=== PATIENT | male | born 1995 | race Caucasian/White ===

== ENCOUNTER 2020-07-21 14:38 | Emergency (ER) | payer SELFPAY ==
--- NOTE | 2020-07-21 16:57 | ER ---
Nurse's Notes [facility] Name: Johnnie Pendleton Age: 24 yrs Sex: Male : 1995 Arrival Date: 07/21/2020 Time: 14:40 Bed 30 Private MD: Diagnosis: Presentation: 07/21 15:08 Chief complaint: Patient states: was working out and was using dumbbells, and something em snapped on the left shoulder, had tingling and pain radiating into left hand. Coronavirus screen: Client denies travel out of the [place] in the last 14 days. Ebola Screen: Patient negative for fever greater than or equal to 101.5 degrees Fahrenheit, and additional compatible Ebola Virus Disease symptoms Patient denies exposure to infectious person. Patient denies travel to an Ebola-affected area in the 21 days before illness onset. No symptoms or risks identified at this time. Initial Sepsis Screen: Does the patient meet any 2 criteria? No. Patient's initial sepsis screen is negative. Does the patient have a suspected source of infection? No. Patient's initial sepsis screen is negative. Risk Assessment: Do you want to hurt yourself or someone else? Patient reports no desire to harm self or others. Onset of symptoms was July 21, 2020. 15:08 Method Of Arrival: Wheelchair em 15:08 Acuity: MILA 4 em Historical: - Allergies: 15:11 No Known Allergies; em - Home Meds: 15:11 None [Active]; em - PMHx: 15:11 None; em - PSHx: 15:11 Cholecystectomy; em - Immunization history:: Adult Immunizations up to date. - Social history:: Smoking status: Patient reports the use of cigarette tobacco products, smokes one-half pack cigarettes per day. Screenin:03 Abuse screen: Denies threats or abuse. Denies injuries from another. Nutritional iw screening: No deficits noted. Tuberculosis screening: No symptoms or risk factors identified. Fall Risk None identified. Assessment: 16:02 General: Appears in no apparent distress. Behavior is calm, cooperative. Pain: iw Complains of pain in anterior aspect of left shoulder and posterior aspect of left shoulder. Neuro: Level of Consciousness is awake, alert, obeys commands, Oriented to person, place, time, situation, Moves all extremities. Cardiovascular: Patient's skin is warm and dry. Respiratory: Respiratory effort is even, unlabored, Respiratory pattern is regular. GI: No signs and/or symptoms were reported involving the gastrointestinal system. Derm: Skin is intact, is healthy with good turgor. Musculoskeletal: Range of motion: intact in all extremities. Vital Signs: 15:08 BP 116 / 71; Pulse 59; Resp 18; Temp 98.1(O); Pulse Ox 100% on R/A; Weight 65.77 kg; em Height 5 ft. 10 in. (177.80 cm); Pain 7/10; 15:08 Body Mass Index 20.81 (65.77 kg, 177.80 cm) em ED Course: 14:40 Patient arrived in ED. mr 15:10 Triage completed. em 15:11 Arm band placed on. em 15:54 Lucie Baxter, RN is Primary Nurse. iw 16:19 Arnol Segura MD is Attending Physician. snw 16:19 [facility] snw 16:58 No provider procedures requiring assistance completed. Patient did not have IV access iw during this emergency room visit. Administered Medications: No medications were administered Outcome: 16:58 Eloped from patient exam room, before seeing physician iw 16:58 Condition: good 16:59 Patient left the ED. iw Signatures: Cassandra Anna FNP-C FNP-Jez NickSintia mr BlockАлександр, RN RN em Lucie Baxter RN RN iw
[2020-07-21 20:14] VITALS: BP 116/71; TEMP 98.1; O2SAT 100
== END 2020-07-21 16:59 | disposition left against medical advice (07) ==
LOC: ER 14:38
DX: Z53.21 Procedure and treatment not carried out due to patient leaving prior to being seen by health care provider (principal)
CPT/HCPCS: 99281